=== PATIENT | male | born 1975 | race Caucasian/White ===

== ENCOUNTER 2022-12-04 04:34 | Emergency (ER) | payer MEDICAID ==
[~2022-12-04] VITALS: Ht 175.3 cm; Wt 73.0 kg
[2022-12-04 04:42] VITALS: BP 122/79
[2022-12-04] MEDS ORDERED: CETI1TAB MT (05:27)
[2022-12-04] MEDS ORDERED: ALBU6.7H3 INH (05:27)
== END 2022-12-04 05:45 | disposition home or self-care (01) ==
LOC: ER 04:57
DX: J30.9 Allergic rhinitis, unspecified (principal)
CPT/HCPCS: 99283